=== PATIENT | female | born 1955 | race Caucasian/White ===

== ENCOUNTER → 2021-08-04 | Outpatient (CLI) | payer BC | LOC: MAMMO 16:00 | DX: Z12.31 Encounter for screening mammogram for malignant neoplasm of breast (principal) ==

== ENCOUNTER 2023-04-25 08:00 | Outpatient (RCR) | payer BC | END 2023-05-25 | disposition home or self-care (01) | LOC: PT | DX: M54.42 Lumbago with sciatica, left side (principal) ==

== ENCOUNTER → 2023-12-14 | Day surgery (SDC) | payer BC ==
[~2023-12-14] MED LIST: fentaNYL 100 MCG/2 ML VIAL ONE
== END | disposition home or self-care (01) ==
LOC: MSO 11-13 22:14
DX: Z12.11 Encounter for screening for malignant neoplasm of colon (principal); F17.210 Nicotine dependence, cigarettes, uncomplicated; E66.9 Obesity, unspecified
CPT/HCPCS: 00812; J2704; J3010; J7120

== ENCOUNTER → 2024-01-26 | Outpatient (CLI) | payer BC ==
[~2024-01-26] VITALS: Ht 170.2 cm; Wt 86.2 kg
[~2024-01-26] MED LIST changes: +ALBUTEROL SULF6.7 GM IH; +ATORVASTATIN CA40 MG PO; +ESCITALOPRAM20 MG PO; +FLUTICASONE P15.8 ML NS; +HYDROCHLOROTHIA1 T15 PO; +LEVOTHYROXINE75 MCG PO; +LYRICA75 MG PO; +MELOXICAM15 MG PO; +NALTREXONE HYDR50 MG PO; +PHENTERMINE H37.5 M3 PO; +WELLBUTRIN XL150 M2 PO; +Zoledronic Acid 100 ML IV ONE; -fentaNYL 100 MCG/2 ML VIAL ONE
[2024-01-26 13:32] VITALS: BP 119/68
== END ==
LOC: AMSURD 13:16
DX: M81.0 Age-related osteoporosis without current pathological fracture (principal)
CPT/HCPCS: J3489